=== PATIENT | male | born 1955 | race Asian ===

== ENCOUNTER 2016-09-30 09:16 | Day surgery (SDC) | payer OTHER ==
[2016-09-30] MEDS ORDERED: LACTATED RINGERS 1,000 ML IV ONE (10:24)
[2016-09-30] MEDS ORDERED: MIDAZOLAM 2 MG/2 ML VIAL IVP ONE (11:59)
[2016-09-30] MEDS ORDERED: fentaNYL 250 MCG/5 ML VIAL IVP ONE (11:59)
== END 2016-09-30 09:17 | disposition home or self-care (01) ==
PROC: 0DBL8ZX Excision of Transverse Colon, Via Natural or Artificial Opening Endoscopic, Diagnostic (ICD-10-PCS; principal; 2016-09-30 10:30)
DX: D12.3 Benign neoplasm of transverse colon (principal); K57.30 Diverticulosis of large intestine without perforation or abscess without bleeding; K64.8 Other hemorrhoids; I10 Essential (primary) hypertension; Z79.82 Long term (current) use of aspirin; E78.00 Pure hypercholesterolemia, unspecified
CPT/HCPCS: 45385; J3010; J7120

== ENCOUNTER 2018-10-27 19:34 | Emergency (ER) | payer OTHER ==
[2018-10-27 19:41] VITALS: BP 192/86
--- NOTE | 2018-10-27 20:08 | ED Physician Documentation ---
History of Present Illness - Stated complaint Stated Complaint: BLOOD PRESSURE HIGH - Chief complaint Chief Complaint: General - History obtained from History obtained from: Patient - History of Present Illness Timing: Today (63-year-old gentleman with hypertension. He was on losartan but was uncontrolled so his physician changed him to hydrochlorothiazide on Wednesday. He has been feeling well, and this morning his blood pressure was well controlled at 120/70 or so. He started checking his blood pressures repeatedly tonight got very anxious. It started out at about 150/80 and then climbed after that. He denies chest pain, trouble breathing, strokelike symptoms, headache, urinary complaints.) Review of Systems Constitutional: denies: Fever, Chills Cardiac: denies: Chest pain / pressure, Palpitations Respiratory: denies: Dyspnea, Cough PD PAST MEDICAL HISTORY - Past Medical History Cardiovascular: Hypertension, High cholesterol Respiratory: None Endocrine/Autoimmune: None GI: None : None HEENT: Glaucoma, Other Psych: None Musculoskeletal: None Derm: None - Past Surgical History Past Surgical History: Yes General: Colonoscopy Ortho: Arthroscopic surgery HEENT: Cataracts - Present Medications Home Medications: Ambulatory Orders Medication Instructions Recorded Confirmed Aspirin 81 mg PO DAILY 09/30/16 10/27/18 Atorvastatin Calcium [Lipitor] 20 mg PO DAILY 09/30/16 10/27/18 Latanoprost 0.005% Ophth Drops 40 drops EACHEYE DAILY 09/30/16 10/27/18 [Xalatan Ophth Drops] Montelukast [Singulair] 10 mg PO QPM 09/30/16 10/27/18 Loratadine 10 mg PO 10/27/18 hydroCHLOROthiazide 25 mg PO 10/27/18 10/27/18 [Hydrochlorothiazide] - Allergies Allergies/Adverse Reactions: Allergies Allergy/AdvReac Type Severity Reaction Status Date / Time timolol Allergy Edema Verified 10/27/18 19:40 - Social History Does the pt smoke?: No Smoking Status: Never smoker Does the pt drink ETOH?: No Does the pt have substance abuse?: No PD ED PE NORMAL - Vitals Vital signs reviewed: Yes - General General: Alert and oriented X 3, No acute distress - Neck Neck: Supple, no meningeal sign, No bony TTP - Cardiac Cardiac: RRR, No murmur - Respiratory Respiratory: No respiratory distress, Clear bilaterally - Abdomen Abdomen: Non tender - Extremities Extremities: No edema, No calf tenderness / cord - Neuro Neuro: Alert and oriented X 3, Normal speech Results - Vitals Vitals: Vital Signs - 24 hr 10/27/18 19:37 Temperature 36.3 C L Heart Rate 72 Respiratory 14 Rate Blood Pressure 192/86 H O2 Saturation 98 Oxygen O2 Source Room air PD MEDICAL DECISION MAKING - ED course ED course: This is a 63-year-old gentleman with hypertension who was well controlled this morning but developed a lot of anxiety about the numbers tonight. He is asymptomatic otherwise. Given that his blood pressure was normal this morning I do not think adding blood pressure medicine is in order right now, he was advised to check it once a day and follow-up with his doctor next week. Departure - Departure Disposition: 01 Home, Self Care Clinical Impression: Anxiety Hypertension Qualifiers: Hypertension type: essential hypertension Qualified Code(s): I10 - Essential (primary) hypertension Condition: Good Record reviewed to determine appropriate education?: Yes Comments: Continue the hydrochlorothiazide. Check your blood pressure once a day, report to your physician next week. Return for specific symptoms including chest pain, trouble breathing, headache.
== END 2018-10-27 20:11 | disposition home or self-care (01) ==
LOC: ED 19:34
DX: F41.9 Anxiety disorder, unspecified (principal); I10 Essential (primary) hypertension
CPT/HCPCS: 99283

== ENCOUNTER 2018-12-01 10:18 | Outpatient (CLI) | payer OTHER ==
--- NOTE | 2018-12-01 15:48 | CARDIAC PROCEDURE NOTE ---
DATE OF SERVICE: 12/01/2018 Physician: Lis Adame MD, [facility] INDICATIONS: Hypertension, anxiety, and family history of sudden cardiac at a young age. The patient has new hypertension and now gets epigastric pain. CARDIAC RISK FACTORS: Male gender, hypertension, elevated cholesterol and triglycerides, family history of heart disease in father and brother. PROCEDURE: After signing informed consent, the patient underwent a treadmill stress test. No imaging study was ordered with this test. RESTING HEART RATE:73. PEAK HEART RATE:148 (93 % predicted maximum heart rate for age). RESTING BLOOD PRESSURE: 152/85 PEAK BLOOD PRESSURE: 199/70. The patient exercised for 6 minutes and 30 seconds on a Romario-protocol treadmill stress test. He achieved a peak heart rate of 148 (93 % PMHR) and 7.8 METS. The patient had mild to moderate shortness of breath at peak, no chest pain or epigastric pain. Oxygen saturation was 96% at peak on room air. RESTING EKG: Normal sinus rhythm with sinus arrhythmia, left atrial enlargement, LVH with left IVCD, ST-T abnormality in lead III only. EKG AT PEAK: No new ST segment or T-wave changes. SUMMARY: 1. Abnormal resting EKG. 2. Hypertensive response to exercise. 3. No ischemic changes by EKG criteria on this treadmill test at an adequate level of stress. 4. Recommend repeating as a stress Echo or Lexiscan nuclear medicine test, because of resting EKG being abnormal. CC: Kimberly Bueno TD: 12/01/2018 15:15 MTDD
== END 2018-12-01 10:19 | disposition home or self-care (01) ==
LOC: DI 10:18
PROVIDERS: ATTEND Family Medicine
DX: I10 Essential (primary) hypertension (principal); F41.9 Anxiety disorder, unspecified; R94.31 Abnormal electrocardiogram [ECG] [EKG]; Z82.49 Family history of ischemic heart disease and other diseases of the circulatory system